=== PATIENT | male | born 1950 | race Caucasian/White ===

== ENCOUNTER → 2019-05-27 | Outpatient (CLI) | payer BC ==
--- NOTE | 2019-05-27 09:03 | US ---
EXAMINATION TYPE: US venous doppler duplex LE LT DATE OF EXAM: 05/27/2019 8:03 AM COMPARISON: NONE CLINICAL HISTORY: R22.42 Localized swelling, mass and lump, left low. Left ankle swelling. No rednes s. No leg swelling. No hx of blood clots. Not on blood thinners. SIDE PERFORMED: Left TECHNIQUE: The lower extremity deep venous system is examined utilizing real time linear array sonog shelley with graded compression, doppler sonography and color-flow sonography. VESSELS IMAGED: External Iliac Vein (EIV) Common Femoral Vein Deep Femoral Vein Greater Saphenous Vein * Femoral Vein Popliteal Vein Small Saphenous Vein * Proximal Calf Veins (* superficial vessels) Left Leg: Negative for DVT Grayscale, color doppler, spectral doppler imaging performed of the deep veins of the left lower extr emity. There is normal flow, compressibility, vascular waveforms. IMPRESSION: No sonographic evidence of deep venous thrombosis within the visualized portion of the l eft lower extremity.
--- NOTE | 2019-05-27 09:20 | US ---
EXAMINATION TYPE: US extremity nonvasculr ltd LT DATE OF EXAM: 05/27/2019 COMPARISON: None CLINICAL HISTORY: R22.42 Localized swelling, mass and lump, left low. Area of focalized swelling scan yandy at medial left ankle. Hx of two broken toes x 4 months ago. TECHNIQUE/FINDINGS: Area of concern scanned with grayscale and color imaging. Superficial edema visu alized diffusely. No focal fluid collection is seen. No prominent masses or lesions visualized. No superficial venous thrombosis seen. IMPRESSION: Diffuse edema of the medial left ankle in the area of interest without superficial venou s thrombosis nor focal fluid collection. No solid or cystic mass seen.
== END ==
LOC: RADUSWWP 07:39
PROVIDERS: ATTEND Family Medicine
DX: R22.42 Localized swelling, mass and lump, left lower limb (principal); R60.0 Localized edema

== ENCOUNTER → 2019-06-02 | Outpatient (CLI) | payer BC ==
[2019-06-02 16:45] LABS: Basophils # (A) 0.1 k/uL (0-0.2); Basophils % (A) 1 %; Eosinophils # (A) 0.2 k/uL (0-0.7); Eosinophils % (A) 2 %; HCT 46.2 % (39.0-53.0); HGB 15.2 gm/dL (13.0-17.5); Lymphocytes # (A) 2.8 k/uL (1.0-4.8); Lymphocytes % (A) 30 %; MCH 30.5 pg (25.0-35.0); MCHC 32.9 g/dL (31.0-37.0); MCV 92.8 fL (80.0-100.0); Mean Platelet Volume 6.1; Monocytes # (A) 0.7 k/uL (0-1.0); Monocytes % (A) 8 %; Neutrophils # (A) 5.4 k/uL (1.3-7.7); Neutrophils % (A) 57 %; Platelet Count 206 k/uL (150-450); RBC 4.98 m/uL (4.30-5.90); RDW 13.2 % (11.5-15.5); WBC 9.4 k/uL (3.8-10.6)
[2019-06-02 18:13] LABS: Erythrocyte Sedimentation Rate 8 mm/hr (0-15)
[2019-06-02 23:44] LABS: C Reactive Protein <0.4 mg/dL (0.0-0.8); Uric Acid 3.5 mg/dL (3.7-8.7)
== END | disposition home or self-care (01) ==
LOC: LABWHC1 16:01
PROVIDERS: ATTEND Orthopaedic Surgery
DX: M10.272 Drug-induced gout, left ankle and foot (principal); M67.372 Transient synovitis, left ankle and foot
CPT/HCPCS: 36415; 84550; 85025; 85652; 86140

== ENCOUNTER → 2019-06-19 | Outpatient (CLI) | payer BC | END | disposition home or self-care (01) | LOC: RADUSWWP 12:50 | PROVIDERS: ATTEND Family Medicine | DX: R22.42 Localized swelling, mass and lump, left lower limb (principal) | CPT/HCPCS: 93922 ==

== ENCOUNTER → 2019-07-04 | Outpatient (CLI) | payer BC ==
--- NOTE | 2019-07-05 01:34 | MR ---
EXAMINATION TYPE: MR ankle LT wo con DATE OF EXAM: 07/04/2019 COMPARISON: None HISTORY: Lt ankle pain/swelling x 6 wks, no trauma Standard multiplanar, multisequence MRI departmental protocol Multiplanar, multisequence images of the left ankle were acquired. FINDINGS: The Achilles tendon is intact. There is however some soft tissue edema anterior to the Achi lles tendon. There is a mild ankle joint effusion. The medial and lateral flexor tendons of the ankle appear intact. The plantar fascia appears intact. There is mild Achilles calcaneal spur formation. T here is subcutaneous edema around the ankle. There is intact collateral ligaments. On the T2 images t here is abnormal increased signal in the mid foot involving the anterior navicular as well as the cun eiform bones. There is abnormal increased signal also in the mid and proximal shaft of the first meta tarsal. There is possible longitudinal chip fracture line through the lateral aspect of the base of t he first metatarsal. This is best seen on proton density axial image 12. IMPRESSION: There is multiple bones of the midfoot with edema involving the cuneiform bones the anterior navicula r and the first metatarsal consistent with bone bruise. There is probably an intra-articular chip fra cture of the lateral aspect of the base of the first metatarsal. Mild soft tissue edema anterior to the lower Achilles tendon. Minimal ankle joint effusion.
== END | disposition home or self-care (01) ==
LOC: RADMRIMAIN 18:05
PROVIDERS: ATTEND Orthopaedic Surgery
DX: M25.472 Effusion, left ankle (principal)

== ENCOUNTER 2019-08-13 06:26 | Day surgery (SDC) | payer BC ==
[2019-08-08 12:08] VITALS: BMI 29.0
[~2019-08-13 06:26] MED LIST: DEXAMETHASONE SOD PHOSPHATE 10 MG/ML 1 ML VIAL IV ONE; LACTATED RINGERS 1,000 ML IV SCH; LIDOCAINE 1% 20 ML VIAL (10MG/ML) FOR IV START INTRADERMA PRN; MORPHINE SULFATE 4 MG/ML SYRINGE IV PRN; MOXIFLOXACIN HCL 0.5% DROPS 3 ML BTL OP NR; PILOCARPINE 2% OPHTH DROPS 15 ML BTL OP NR; TETRACAINE 0.5% OPHTH (PF) DROPS 4 ML BTL OP NR; TIMOLOL 0.5% OPHTH DROPS 5 ML BTL OP NR; TOBRA-DEXAMET 0.3-0.1% OPHTH DROPS 2.5 ML BTL OPHTHALMIC NR
[2019-08-13 06:56] VITALS: TEMP 97.4
[2019-08-13 07:00] LABS: Glucose,Whole Blood 172 mg/dL (75-99)
[2019-08-13] MEDS ORDERED: fentaNYL (PF) 50 MCG/ML 2 ML AMP ONE (07:25)
[2019-08-13] MEDS ORDERED: MIDAZOLAM 2 MG/2 ML VIAL ONE (07:25)
[2019-08-13] MEDS ORDERED: CHONDROITIN-SOD HYALURONATE 1 EACH SYRINGE (0.75 ML) INTRAOCULA ONE (07:41)
[2019-08-13] MEDS ORDERED: TRYPAN BLUE 0.06% SYRINGE 0.5 ML SYRINGE MISCELLANE ONE (07:55)
--- NOTE | 2019-08-13 08:07 | P.OP ---
Date of Procedure: 08/13/19 Preoperative Diagnosis: POAG moderate stage Postoperative Diagnosis: same Procedure(s) Performed: goniotomy OD Implants: none Anesthesia: MAC Surgeon: King Gonzalez Estimated Blood Loss (ml): 3 Pathology: none sent Condition: stable Disposition: observation Indications for Procedure: poor glaucoma control Operative Findings: no complications
[2019-08-13 09:09] VITALS: BP 177/79; PULSE 61; RESP 16
--- NOTE | 2019-08-14 05:40 | OP ---
OPERATIVE REPORT DATE OF SURGERY: 08/13/2019 PROCEDURE: Goniotomy of the right eye. PREOPERATIVE DIAGNOSIS: Primary open-angle glaucoma, moderate stage. POSTOPERATIVE DIAGNOSIS: Primary open-angle glaucoma, moderate stage. SURGEON: Dr. King Gonzalez. ANESTHESIA: Topical. ESTIMATED BLOOD LOSS: 3 mL SPECIMEN TAKEN: None. NARRATIVE: After obtaining the appropriate consent, the patient was brought to the operating room there he was placed on cardiac monitoring, prepped and draped in the usual sterile manner. He was approached from his right temporal side and at the 9 o'clock position, a 2.5 mm keratome was used to create a self-sealing corneal flap incision. Through this opening 1% Xylocaine MPF 50:50 mix with balanced salt solution was injected into the anterior chamber. This was followed by Trypan Blue, which was left in the eye for approximately 1 minute. Once irrigated away, Viscoat was then used to stabilize the anterior chamber. The patient then had his head rotated to his left approximately 45 degrees and additional Viscoat was placed on the patient's cornea as well as the anterior chamber. Gonioprism was placed on the patient's eye easily identifying the trabecular meshwork. Using a [employer] dual blade goniotomy knife, a [id number] method was used to remove the nasal 5 hours of trabecular meshwork. A small amount of bleeding was encountered as expected. The patient was rotated back to the normal supine position and the remaining viscoelastic was then removed from the anterior chamber under irrigation and aspiration. The eye was then brought to slightly above normal intra-ocular pressure at about 25 mmHg. The incision was confirmed watertight. He then received 2 drops of 0.5% of timolol, 2 drops of moxifloxacin and was then lightly patched and shielded in the usual manner. There were no complications from the procedure. He tolerated the procedure well and was returned to outpatient recovery in good condition. MMODL / IJN: [id number] /
== END 2019-08-13 08:47 | disposition home or self-care (01) ==
LOC: OR 06:26
PROVIDERS: ATTEND Ophthalmology
DX: H40.1112 Primary open-angle glaucoma, right eye, moderate stage (principal); Z79.4 Long term (current) use of insulin; Z96.1 Presence of intraocular lens; H47.392 Other disorders of optic disc, left eye; E11.3393 Type 2 diabetes mellitus with moderate nonproliferative diabetic retinopathy without macular edema, bilateral; H35.373 Puckering of macula, bilateral; H04.123 Dry eye syndrome of bilateral lacrimal glands; H52.13 Myopia, bilateral; H52.223 Regular astigmatism, bilateral
CPT/HCPCS: 65820; J2250; J3010

== ENCOUNTER 2020-08-04 09:44 | Emergency (ER) | payer BC ==
[2020-08-04 09:59] VITALS: RESP 18; TEMP 98
[2020-08-04 10:09] LABS: Glucose,Whole Blood 82 mg/dL (75-99)
[2020-08-04 10:14] LABS: Basophils # (A) 0.1 k/uL (0-0.2); Basophils % (A) 1 %; Eosinophils # (A) 0.1 k/uL (0-0.7); Eosinophils % (A) 1 %; HCT 46.8 % (39.0-53.0); HGB 15.7 gm/dL (13.0-17.5); Lymphocytes # (A) 1.8 k/uL (1.0-4.8); Lymphocytes % (A) 15 %; MCH 30.2 pg (25.0-35.0); MCHC 33.5 g/dL (31.0-37.0); MCV 89.9 fL (80.0-100.0); Mean Platelet Volume 7.4; Monocytes # (A) 0.7 k/uL (0-1.0); Monocytes % (A) 6 %; Neutrophils # (A) 8.7 k/uL (1.3-7.7); Neutrophils % (A) 77 %; Platelet Count 164 k/uL (150-450); RDW 13.5 % (11.5-15.5); WBC 11.4 k/uL (3.8-10.6)
[2020-08-04] MEDS ORDERED: DEXTROSE 50% SYRINGE 50 ML IVP STA (10:15)
--- NOTE | 2020-08-04 10:16 | ED ---
General Adult HPI - General Chief complaint: Altered Mental Status Stated complaint: CONFUSSION Time Seen by Provider: 08/04/20 09:48 Source: patient, EMS Mode of arrival: EMS Limitations: no limitations - History of Present Illness Initial comments: Dictation was produced using [employer] dictation software. please excuse any grammatical, word or spelling errors. This patient was cared for during a federal and state declared state of emergency secondary to Covid 19 Chief Complaint: 69-year-old male brought in for altered mental status. History of Present Illness: Is a 69-year-old male he is a insulin-dependent diabetic. Patient is brought in by EMS for altered mental status. EMS reports that patient had blood glucose in the 50s upon initial evaluation. He is given dextrose with improvement of symptoms. They were concerned however that patient had strokelike symptoms and ended up bringing patient to the emergency room. Benjamin mauro states that he has history of hypoglycemia. Denies any numbness or paresthesias. EMS reports that there is concern that perhaps made his right face looked a little droopy and he had some right-sided deficits. Patient denies any neurologic complaints. He has no complaints medically at this time. EMS checked his sugar after dexterous menstruation with measuring approximately 190 The ROS documented in this emergency department record has been reviewed and confirmed by me. Those systems with pertinent positive or negative responses have been documented in the HPI. All other systems are other negative and/or noncontributory. PHYSICAL EXAM: General Impression: Alert and oriented x3, not in acute distress HEENT: Normocephalic atraumatic, extra-ocular movements intact, pupils equal and reactive to light bilaterally, mucous membranes moist. Cardiovascular: Heart regular rate and rhythm Chest: Able to complete full sentences, no retractions, no tachypnea Abdomen: abdomen soft, non-tender, non-distended, no organomegaly Musculoskeletal: Pulses present and equal in all extremities, no peripheral edema Motor: no focal deficits noted Neurological: CN II-XII grossly intact, no focal motor or sensory deficits noted, NIH of 0 Skin: Intact with no visualized rashes Psych: Normal affect and mood ED course: 69-year-old male presents today with altered mental status. Patient does not appear to be altered at bedside. He did have hypoglycemia. Patient's blood sugar is rechecked and found to be hypoglycemic again. He allegedly took his insulin despite not eating and having a low blood sugar this morning. Vital signs upon arrival are within acceptable limits. is at bedside. More history was obtained. Patient believes that he may have mistakenly took more insulin than he was supposed to. Believes that he took more of his short-acting insulin and he is prescribed. Patient observed in emergency department for approximately one and a half. 12. Tolerate oral. Patient is agreeable for discharge under the care of his and his daughter. They're warned of the signs of hypoglycemia and if he shows no signs to provide patient with glucose. He does have a glucometer at home. EKG interpretation: Ventricular rate 82, normal sinus rhythm,. Interval 200, Q RS 118, QTc 462. No [place] prolongation, no QTC prolongation, no ST or T-wave changes noted. EKG compared to 06/19/2016 showing no changes. Overall, this EKG is unremarkable - Related Data Home Medications Medication Instructions Recorded Confirmed Insulin Glargine [Lantus] 24 unit SQ QAM 08/08/19 08/04/20 Cetirizine HCl [Zyrtec] 10 mg PO DAILY PRN 08/04/20 08/04/20 Insulin Lispro [humaLOG Kwikpen] 4 - 5 unit SQ AC-TID 08/04/20 08/04/20 Losartan Potassium [Cozaar] 50 mg PO DAILY 08/04/20 08/04/20 Allergies Allergy/AdvReac Type Severity Reaction Status Date / Time No Known Allergies Allergy Verified 08/04/20 10:30 Review of Systems ROS Statement: Those systems with pertinent positive or pertinent negative responses have been documented in the HPI. ROS Other: All systems not noted in ROS Statement are negative. Past Medical History Past Medical History: Diabetes Mellitus Additional Past Medical History / Comment(s): left foot swelling currently, all test WNL and following up with a foot dr in a few weeks. increased eye pressure but no current glaucoma History of Any Multi-Drug Resistant Organisms: None Reported Past Surgical History: Adenoidectomy, Appendectomy, Orthopedic Surgery, Tonsillectomy Additional Past Surgical History / Comment(s): prev eye. surg. Past Anesthesia/Blood Transfusion Reactions: No Reported Reaction Past Psychological History: No Psychological Hx Reported Past Alcohol Use History: None Reported Past Drug Use History: None Reported - Past Family History Mother Family Medical History: No Reported History General Exam Limitations: no limitations Course Vital Signs 08/04/20 08/04/20 09:48 10:24 Temperature 98 F Pulse Rate 84 84 Respiratory 18 18 Rate Blood Pressure 183/74 176/84 O2 Sat by Pulse 98 97 Oximetry Medical Decision Making - Lab Data Result diagrams: 08/04/20 10:06 08/04/20 10:06 Lab Results 08/04/20 08/04/20 08/04/20 Range/Units 09:57 10:06 10:06 WBC 11.4 H (3.8-10.6) k/uL RBC 5.20 (4.30-5.90) m/uL Hgb 15.7 (13.0-17.5) gm/dL Hct 46.8 (39.0-53.0) % MCV 89.9 (80.0-100.0) fL MCH 30.2 (25.0-35.0) pg MCHC 33.5 (31.0-37.0) g/dL RDW 13.5 (11.5-15.5) % Plt Count 164 (150-450) k/uL MPV 7.4 Neutrophils % 77 % Lymphocytes % 15 % Monocytes % 6 % Eosinophils % 1 % Basophils % 1 % Neutrophils # 8.7 H (1.3-7.7) k/uL Lymphocytes # 1.8 (1.0-4.8) k/uL Monocytes # 0.7 (0-1.0) k/uL Eosinophils # 0.1 (0-0.7) k/uL Basophils # 0.1 (0-0.2) k/uL PT (9.0-12.0) sec INR (<1.2) APTT (22.0-30.0) sec Sodium 139 (137-145) mmol/L Potassium 3.8 (3.5-5.1) mmol/L Chloride 108 H (98-107) mmol/L Carbon Dioxide 28 (22-30) mmol/L Anion Gap 3 mmol/L BUN 26 H (9-20) mg/dL Creatinine 0.75 (0.66-1.25) mg/dL Est GFR (CKD-EPI)AfAm >90 (>60 ml/min/1.73 sqM) Est GFR (CKD-EPI)NonAf >90 (>60 ml/min/1.73 sqM) Glucose 94 (74-99) mg/dL POC Glucose (mg/dL) 82 (75-99) mg/dL POC Glu Hand Painter Hay Guerra Calcium 9.2 (8.4-10.2) mg/dL Magnesium 2.0 (1.6-2.3) mg/dL Total Bilirubin 0.8 (0.2-1.3) mg/dL AST 37 (17-59) U/L ALT 24 (4-49) U/L Alkaline Phosphatase 87 (38-126) U/L Troponin I (0.000-0.034) ng/mL Total Protein 6.9 (6.3-8.2) g/dL Albumin 3.9 (3.5-5.0) g/dL 08/04/20 08/04/20 08/04/20 Range/Units 10:06 10:06 10:12 WBC (3.8-10.6) k/uL RBC (4.30-5.90) m/uL Hgb (13.0-17.5) gm/dL Hct (39.0-53.0) % MCV (80.0-100.0) fL MCH (25.0-35.0) pg MCHC (31.0-37.0) g/dL RDW (11.5-15.5) % Plt Count (150-450) k/uL MPV Neutrophils % % Lymphocytes % % Monocytes % % Eosinophils % % Basophils % % Neutrophils # (1.3-7.7) k/uL Lymphocytes # (1.0-4.8) k/uL Monocytes # (0-1.0) k/uL Eosinophils # (0-0.7) k/uL Basophils # (0-0.2) k/uL PT 10.8 (9.0-12.0) sec INR 1.1 (<1.2) APTT 20.2 L (22.0-30.0) sec Sodium (137-145) mmol/L Potassium (3.5-5.1) mmol/L Chloride (98-107) mmol/L Carbon Dioxide (22-30) mmol/L Anion Gap mmol/L BUN (9-20) mg/dL Creatinine (0.66-1.25) mg/dL Est GFR (CKD-EPI)AfAm (>60 ml/min/1.73 sqM) Est GFR (CKD-EPI)NonAf (>60 ml/min/1.73 sqM) Glucose (74-99) mg/dL POC Glucose (mg/dL) 79 (75-99) mg/dL POC Glu Hand Painter Hay Guerra Calcium (8.4-10.2) mg/dL Magnesium (1.6-2.3) mg/dL Total Bilirubin (0.2-1.3) mg/dL AST (17-59) U/L ALT (4-49) U/L Alkaline Phosphatase (38-126) U/L Troponin I <0.012 (0.000-0.034) ng/mL Total Protein (6.3-8.2) g/dL Albumin (3.5-5.0) g/dL 08/04/20 Range/Units 10:40 WBC (3.8-10.6) k/uL RBC (4.30-5.90) m/uL Hgb (13.0-17.5) gm/dL Hct (39.0-53.0) % MCV (80.0-100.0) fL MCH (25.0-35.0) pg MCHC (31.0-37.0) g/dL RDW (11.5-15.5) % Plt Count (150-450) k/uL MPV Neutrophils % % Lymphocytes % % Monocytes % % Eosinophils % % Basophils % % Neutrophils # (1.3-7.7) k/uL Lymphocytes # (1.0-4.8) k/uL Monocytes # (0-1.0) k/uL Eosinophils # (0-0.7) k/uL Basophils # (0-0.2) k/uL PT (9.0-12.0) sec INR (<1.2) APTT (22.0-30.0) sec Sodium (137-145) mmol/L Potassium (3.5-5.1) mmol/L Chloride (98-107) mmol/L Carbon Dioxide (22-30) mmol/L Anion Gap mmol/L BUN (9-20) mg/dL Creatinine (0.66-1.25) mg/dL Est GFR (CKD-EPI)AfAm (>60 ml/min/1.73 sqM) Est GFR (CKD-EPI)NonAf (>60 ml/min/1.73 sqM) Glucose (74-99) mg/dL POC Glucose (mg/dL) 162 H (75-99) mg/dL POC Glu Hand Painter ID Le Varghese Calcium (8.4-10.2) mg/dL Magnesium (1.6-2.3) mg/dL Total Bilirubin (0.2-1.3) mg/dL AST (17-59) U/L ALT (4-49) U/L Alkaline Phosphatase (38-126) U/L Troponin I (0.000-0.034) ng/mL Total Protein (6.3-8.2) g/dL Albumin (3.5-5.0) g/dL Disposition Clinical Impression: Hypoglycemia Disposition: HOME SELF-CARE Condition: Good Instructions (If sedation given, give patient instructions): Hypoglycemia in a Person with Diabetes (ED) Is patient prescribed a controlled substance at d/c from ED?: No Referrals: None,Stated [REFERRING] - 1-2 days Time of Disposition: 10:56
[2020-08-04 10:23] LABS: Glucose,Whole Blood 79 mg/dL (75-99)
[2020-08-04 10:24] LABS: ALT 24 U/L (4-49); AST 37 U/L (17-59); African American GFR (CKD) >90 (>60 ml/min/1.73 sqM); Albumin 3.9 g/dL (3.5-5.0); Alkaline Phosphatase 87 U/L (38-126); Anion Gap 3 mmol/L; Blood Urea Nitrogen 26 mg/dL (9-20); Calcium 9.2 mg/dL (8.4-10.2); Carbon Dioxide 28 mmol/L (22-30); Chloride 108 mmol/L (98-107); Glucose 94 mg/dL (74-99); Non-African American GFR(CKD) >90 (>60 ml/min/1.73 sqM); Potassium 3.8 mmol/L (3.5-5.1); Sodium 139 mmol/L (137-145); Total Bilirubin 0.8 mg/dL (0.2-1.3); Total Protein 6.9 g/dL (6.3-8.2)
[2020-08-04 10:40] LABS: INR 1.1 (<1.2); Partial Thromboplastin Time 20.2 sec (22.0-30.0); Prothrombin Time 10.8 sec (9.0-12.0)
[2020-08-04 10:42] LABS: Glucose,Whole Blood 162 mg/dL (75-99)
[2020-08-04 10:55] VITALS: PULSE 74
[2020-08-04 11:03] VITALS: BP 159/85
[2020-08-04 11:06] LABS: Glucose,Whole Blood 156 mg/dL (75-99)
== END 2020-08-04 11:10 | disposition home or self-care (01) ==
LOC: EC 09:44
DX: E11.649 Type 2 diabetes mellitus with hypoglycemia without coma (principal); M79.89 Other specified soft tissue disorders; Z79.4 Long term (current) use of insulin
CPT/HCPCS: 36415; 80053; 83735; 84484; 85025; 85610; 85730; 93005; 96374; 99285

== ENCOUNTER → 2022-02-02 | Outpatient (CLI) | payer BC ==
--- NOTE | 2022-02-02 15:03 | CT ---
EXAMINATION TYPE: CT brain wo con DATE OF EXAM: 02/02/2022 COMPARISON: None available HISTORY: head trauma CT DLP: 1171 mGycm Automated exposure control for dose reduction was used. TECHNIQUE: CT scan of the brain is performed without IV contrast administration. FINDINGS: Artifactual images. Scattered arterial atherosclerotic calcifications. No acute intracranial hemorrha ge. No gross acute cortical infarct. No midline shift, herniation or ventriculomegaly. Unremarkable basal cisterns, sella and CP angles. No gross space-occupying lesion, vasogenic edema or mass effect. Unremarkable orbits. Clear visualized paranasal sinuses and mastoid air cells. Unremarkable calvarial bones. IMPRESSION: No acute intracranial posttraumatic sequela or acute calvarial bone fracture.
== END | disposition home or self-care (01) ==
LOC: RADCTMAIN 14:33
PROVIDERS: ATTEND Family Medicine
DX: S09.90XA Unspecified injury of head, initial encounter (principal); R53.83 Other fatigue; H53.19 Other subjective visual disturbances
CPT/HCPCS: 70450

== ENCOUNTER → 2022-02-17 | Outpatient (CLI) | payer BC ==
--- NOTE | 2022-02-17 12:00 | US ---
EXAMINATION TYPE: US carotid duplex BILAT DATE OF EXAM: 02/17/2022 COMPARISON: NONE CLINICAL HISTORY: H53.19 VISUAL DISTURBANCE. EXAM MEASUREMENTS: RIGHT: Peak Systolic Velocity (PSV) cm/sec ----- Right CCA: 65.3 ----- Right ICA: 62.2 ----- Right ECA: 104.0 ICA/CCA ratio: 1.0 RIGHT: End Diastole cm/sec ----- Right CCA: 15.9 ----- Right ICA: 17.1 ----- Right ECA: 9.3 LEFT: Peak Systolic Velocity (PSV) cm/sec ----- Left CCA: 63.0 ----- Left ICA: 67.6 ----- Left ECA: 82.6 ICA/CCA ratio: 1.1 LEFT: End Diastole cm/sec ----- Left CCA: 9.2 ----- Left ICA: 21.3 ----- Left ECA: 9.6 VERTEBRALS (direction of flow): Right Vertebral: Antegrade Left Vertebral: Antegrade Rhythm: Normal No significant stenosis . Cabrera scale images show no significant focal plaque at carotid bulb level bi laterally. IMPRESSION: No hemodynamically significant stenosis in either internal carotid artery. Criteria for Assigning % of Stenosis / Diameter reduction (Estimation based on the indirect measurements of the internal carotid artery velocities (ICA PSV). 1. Normal (no stenosis)=ICA PSV < 125 cm/s: ratio < 2.0: ICA EDV<40 cm/s. 2. Less than 50% stenosis=ICA PSV < 125 cm/s: ratio < 2.0: ICA EDV<40 cm/s. 3. 50 to 69% stenosis=ICA PSV of 125 to 230 cm/s: ration 2.0 ? 4.0: ICA EDV 40-100 cm/s. 4. Greater than 70% stenosis to near occlusion= ICA PSV > 230 cm/s: ratio > 4.0: ICA EDV > 100 cm/s. 5. Near occlusion= ICA PSV velocities may be low or undetectable: variable ratio and ICA EDV. 6. Total occlusion=unable to detect flow.
== END | disposition home or self-care (01) ==
LOC: RADUSWWP 10:48
PROVIDERS: ATTEND Family Medicine
DX: H53.19 Other subjective visual disturbances (principal)
CPT/HCPCS: 93880

== ENCOUNTER 2022-05-03 06:52 | Day surgery (SDC) | payer BC ==
[2022-05-02 10:34] VITALS: BMI 28.3
[~2022-05-03 06:52] MED LIST changes: -DEXAMETHASONE SOD PHOSPHATE 10 MG/ML 1 ML VIAL IV ONE; -LACTATED RINGERS 1,000 ML IV SCH; +LIDOCAINE 1% (10MG/ML) FOR IV START INTRADERMA PRN; -LIDOCAINE 1% 20 ML VIAL (10MG/ML) FOR IV START INTRADERMA PRN; -MORPHINE SULFATE 4 MG/ML SYRINGE IV PRN; -MOXIFLOXACIN HCL 0.5% DROPS 3 ML BTL OP NR; -PILOCARPINE 2% OPHTH DROPS 15 ML BTL OP NR; -TETRACAINE 0.5% OPHTH (PF) DROPS 4 ML BTL OP NR; -TIMOLOL 0.5% OPHTH DROPS 5 ML BTL OP NR; -TOBRA-DEXAMET 0.3-0.1% OPHTH DROPS 2.5 ML BTL OPHTHALMIC NR
[2022-05-03] MEDS: LACTATED RINGERS 1,000 ML IV SCH ×2 (07:13→08:13)
[2022-05-03 07:28] LABS: Glucose,Whole Blood 163 mg/dL (70-110)
[2022-05-03 07:31] VITALS: TEMP 96.9
[2022-05-03] MEDS ORDERED: PROPOFOL 10 MG/ML 20 ML VIAL IV ONE (08:14)
--- NOTE | 2022-05-03 08:32 | P.PCN ---
Date of Procedure: 05/03/22 Procedure(s) Performed: BRIEF HISTORY: Patient is a 71-year-old pleasant white male scheduled for an elective colonoscopy as a part of screening for colorectal neoplasia. His last colonoscopy was 10 years ago PREOPERATIVE DIAGNOSIS: Screening for colon cancer. Procedure performed: Colonoscopy with biopsy IV sedation per Anesthesia. PROCEDURE: After informed consent was obtained, the patient, was brought into the endoscopy unit. IV sedation was administered by Anesthesia under continuous monitoring. Digital rectal examination was normal. Initially the Olympus CF-160 flexible video colonoscope was then inserted in the rectum, gradually advanced into the cecum without any difficulty. Careful examination was performed as the scope was gradually being withdrawn. Ileocecal valve and the appendiceal orifice were visualized and appeared normal. Prep was excellent. Mucosa of the cecum, ascending colon, transverse colon, descending colon, sigmoid colon, and rectum appeared normal. in the proximal rectum there was a 5 limited polyp that was removed by cold biopsy. His last colonoscopy was 10 years ago. Retroflexion was performed in the rectum and no lesions were seen. The patient tolerated the procedure well. IMPRESSION: 5mm proximal rectal polyp status post cold biopsy Rest of the colon appeared normal RECOMMENDATIONS: Findings of this examination were discussed with the patient as well as her family is family. He was advised to follow with the biopsy results. If the biopsy reveals adenoma he can have a repeat colonoscopy in 5 years].
[2022-05-03 08:36] VITALS: RESP 16
[2022-05-03 08:49] VITALS: BP 118/72; PULSE 75
== END 2022-05-03 09:23 | disposition home or self-care (01) ==
LOC: ORWHC2ENDO 06:52
PROVIDERS: ATTEND Internal Medicine Gastroenterology
DX: Z12.11 Encounter for screening for malignant neoplasm of colon (principal); D12.8 Benign neoplasm of rectum; E11.9 Type 2 diabetes mellitus without complications; Z79.4 Long term (current) use of insulin
CPT/HCPCS: 88305; 45380; J2704

== ENCOUNTER → 2023-10-12 | Outpatient (CLI) | payer BC ==
--- NOTE | 2023-10-12 19:23 | CT ---
EXAMINATION TYPE: CT abdomen pelvis wo con DATE OF EXAM: 10/12/2023 COMPARISON: None HISTORY: 72-year-old male N20.0, Right flank pain x [address] DLP: 840.0 mGycm. Automated exposure control for dose reduction was used. TECHNIQUE: Contiguous axial scanning of the abdomen and pelvis without IV contrast. Coronal and sagit ruth reconstructions performed. FINDINGS: Heart upper limits of normal in size without pericardial effusion. Strandy atelectasis lateral left b ase. No pleural effusion. Noncontrast appearance of the liver, gallbladder, adrenal glands, spleen, and atrophic pancreas show no gross abnormal body. Slightly lobulated bilateral renal contours. No nephrolithiasis or hydronephrosis is seen. Moderate atherosclerotic calcifications infrarenal abdominal aorta without aneurysm. Small fatty umbilical hernia. No dilated small bowel, free fluid, or free air. No mesenteric or retroperitoneal lymphadenopathy. Appendix not clearly seen. No secondary findings of acute appendicitis in the right lower quadrant. There is moderate stool burden. No pericolonic inflammatory change. Moderate circumferential bladder wall thickening. Prostate gland enlargement 5.4 cm wide. Patulous bi lateral inguinal canals with a smaller early right-sided direct inguinal hernia containing a nonobstr ucted loop of small bowel. No abnormal fluid collection in the pelvis or pelvic lymphadenopathy. Moderate right scrotal hydrocele. Bones: Congenital spinal canal stenosis lumbar spine with AP canal dimension of the [place] spine of 1 cm. Bulging discs further narrows the spinal canal suggested that L4-L5 where there is a moderate sp inal canal stenosis. IMPRESSION: 1. Small direct right inguinal hernia with a nonobstructed small bowel loop just beginning to bulge into the small hernia sac. 2. Moderate right-sided scrotal hydrocele. 3. Moderate stool burden, possible constipation. 4. Moderate circumferential bladder wall thickening could represent cystitis or chronic bladder wall hypertrophy. Prostate gland is enlarged at 5.4 cm wide.
== END | disposition home or self-care (01) ==
LOC: RADCTMAIN 17:41
PROVIDERS: ATTEND Family Medicine
DX: K40.90 Unilateral inguinal hernia, without obstruction or gangrene, not specified as recurrent (principal); N43.3 Hydrocele, unspecified; N20.0 Calculus of kidney; N40.0 Benign prostatic hyperplasia without lower urinary tract symptoms; N32.89 Other specified disorders of bladder
CPT/HCPCS: 74176

== ENCOUNTER → 2024-05-29 | Outpatient (CLI) | payer BC ==
--- NOTE | 2024-05-29 11:37 | US ---
EXAMINATION TYPE: US kidneys/renal and bladder DATE OF EXAM: 05/29/2024 COMPARISON: CT 10/12/2023 CLINICAL INDICATION: Male, 73 years old with history of R31.29 OTHER MICROSCOPIC HEMATURIA; Right fla nk pain x 1 week, History of renal stones and DM TECHNIQUE: Grayscale and color Doppler imaging of the bilateral kidneys and urinary bladder: FINDINGS: EXAM MEASUREMENTS: Right Kidney: 9.8 x 6.2 x 5.6 cm Left Kidney: 10.5 x 7.2 x 6.5 cm Post Void Residual Volume: NA mL Right Kidney: No definite hydronephrosis or nephrolithiasis. Left Kidney: No definite hydronephrosis or nephrolithiasis. Bladder: Not fully distended; on limited evaluation with no gross calcification or obvious wall thick ening. Bilateral Jets seen: Yes Normal Post Void Residual: NA Renal cortical thickness and echogenicity maintained. IMPRESSION: No definite hydronephrosis or nephrolithiasis. [facility], , 05/29/2024 11:35 AM
== END | disposition home or self-care (01) ==
LOC: RADUSWWP 09:24
PROVIDERS: ATTEND Family Medicine
DX: R31.29 Other microscopic hematuria (principal); E11.9 Type 2 diabetes mellitus without complications; R10.9 Unspecified abdominal pain; Z87.442 Personal history of urinary calculi
CPT/HCPCS: 76770